=== PATIENT | male | born 1970 | race Caucasian/White ===

== ENCOUNTER 2016-11-07 07:38 | Emergency (ER) | payer MEDICAID, OTHER ==
[2016-11-07 07:43] VITALS: BP 133/91; PULSE 79; TEMP 97.3
--- NOTE | 2016-11-07 08:00 | EDPHY ---
H & P Time Seen by Provider: 11/07/16 07:46 HPI/ROS: CHIEF COMPLAINT: Back pain HISTORY OF PRESENT ILLNESS: This 46-year-old man was doing lifting yesterday for the 1st time with a workout partner at 5:00 p.m.. He lifted the barbell and immediately had pain in his left side of his back which radiated a little bit into his buttock but not into his leg. He was able to sleep about 4 hours last night but presents to the emergency department this morning with left -sided low back pain which is moderate to severe and worse with certain motions but not associated with incontinence or weakness or numbness or tingling of lower extremities. Took 2 Midol at 6:00 a.m. without significant relief. REVIEW OF SYSTEMS: No other trauma, no fever, no IV drug abuse. Associated nausea with pain. No urinary symptoms and no hematuria or other urinary or testicular symptoms this morning. PAST MEDICAL HISTORY: Pneumonia as a child otherwise negative Social history: [facility] patient General Appearance: Alert and conversant, cooperative. Ambulatory but with a bent over posture because of pain. Tenderness to palpation on the left lower lumbar paraspinal muscles but no midline spinal tenderness. Abdomen nontender. No pulsatile masses. Lower extremity showed normal motor strength and sensation with normal dorsiflexion of E HL. Patellar reflexes 2+ symmetric and ankle reflexes 1+ symmetric and toes downgoing. Saddle sensation intact. Emergency Department course/MDM: Patient presents with acute low back pain likely muscle strain or spasm. Differential includes but not limited to spinal fracture or acute disc herniation or renal colic. However with no neurologic deficit or symptoms treatment is symptomatic with topical therapy as well as anti-inflammatories and muscle relaxants. Precautions discussed including immediate return for neurologic symptoms. Referral to primary care physician at [facility]. Patient was offered medical treatment in the emergency department but would prefer to get prescriptions fill at pharmacy and then drive home. Smoking Status: Former smoker Constitutional: Initial Vital Signs Temperature (C) 36.3 C 11/07/16 07:39 Heart Rate 79 11/07/16 07:39 Respiratory Rate 18 11/07/16 07:39 Blood Pressure 133/91 H 11/07/16 07:39 O2 Sat (%) 98 11/07/16 07:39 O2 Delivery Mode Room Air Allergies/Adverse Reactions: No Known Allergies Allergy (Unverified 11/07/16 07:40) Home Medications: Medication Instructions Recorded Cyclobenzaprine [Flexeril] 10 mg PO TID PRN #11 tab 11/07/16 oxyCODONE/APAP 5/325 [Percocet] 1 - 2 tab PO Q4-6PRN PRN #11 tab 11/07/16 MDM/Departure - Depart Disposition: Home, Routine, Self-Care Clinical Impression: Low back strain Condition: Good Instructions: Low Back Strain (ED) Additional Instructions: Return immediately for weakness or numbness in legs, incontinence, severe pain not controlled by medication. Use cold to affected area 20 minutes at a time as discussed over the next 24 hours. Oral ibuprofen 600 mg every 6-8 hours for the next 3 days. Stand Alone Forms: Work Excuse Prescriptions: Cyclobenzaprine [Flexeril] 10 mg PO TID PRN #11 tab PRN Reason: back pain oxyCODONE/APAP 5/325 [Percocet] 1 - 2 tab PO Q4-6PRN PRN #11 tab PRN Reason: Pain Referrals: [facility] [Provider Group] - 3-4 days, if not improved
[2016-11-07 08:13] VITALS: RESP 20; O2SAT 96
== END 2016-11-07 08:11 | disposition home or self-care (01) ==
DX: S39.012A Strain of muscle, fascia and tendon of lower back, initial encounter (principal); Z87.891 Personal history of nicotine dependence; X50.0XXA Overexertion from strenuous movement or load, initial encounter; Y93.89 Activity, other specified